=== PATIENT | female | born 2005 | race Caucasian/White ===

== ENCOUNTER 2025-04-24 22:54 | Emergency (ER) | payer MEDICAID, SELFPAY ==
[2025-04-24 23:17] LABS: Bacteria/HPF None Seen HPF (None Seen); CAUTI Indications for Culture Dysuria,urgency,freq; Glucose, Urine (Dipstick) Normal (Negative); Leukocyte Negative Leu/uL (Negative); Protein, Urine (Dipstick) 10 mg/dL (Neg-Trace); RBC/HPF 0-3 HPF (0-3); Specific Gravity, Urine 1.026 (1.002-1.036); WBC/HPF 0-3 HPF (0-3)
[2025-04-24 23:19] LABS: Urine Culture Reflex No No
== END 2025-04-25 01:33 | disposition left against medical advice (07) ==
LOC: ERS 22:54
DX: Z53.21 Procedure and treatment not carried out due to patient leaving prior to being seen by health care provider (principal)
CPT/HCPCS: 81001